=== PATIENT | female | born 1990 | race Caucasian/White ===

== ENCOUNTER 2017-04-15 13:51 | Outpatient (CLI) | payer SELFPAY ==
[2017-04-15 14:37] VITALS: BP 116/67; PULSE 96; RESP 15; TEMP 96.8
[2017-04-15 14:50] LABS: Appearance,Urine Cloudy (Clear); Bacteria,Urine Few /hpf; Bilirubin,Urine Negative (Negative); Blood,Urine Negative (Negative); Color,Urine Yellow; Glucose,Urine (UA) Negative (Negative); Ketones,Urine Negative (Negative); Leukocyte Esterase,Urine Trace (Negative); Mucus,Urine Rare /hpf; Nitrite,Urine Negative (Negative); Protein,Urine Negative (Negative); RBC,Urine 1 /hpf (0-5); Squamous Epithelial Cell,Urine 24 /hpf (0-4); Urobilinogen,Urine <2.0 mg/dL (<2.0); WBC,Urine 3 /hpf (0-5)
[2017-04-15] MEDS ORDERED: IBUPROFEN 400 MG TAB PO STA (15:05)
--- NOTE | 2017-06-21 09:12 | P.MSEPDOC ---
Presenting Problems - Arrival Data Date of Arrival on Unit: 04/15/17 Time of Arrival on Unit: 13:51 Mode of Transport: Ambulatory - Complaint OB-Reason for Admission/Chief Complaint: Headache Medical History - Information : 2 Para: 0 Term: 0 : 0 Abortions: Spontaneous or Elective: 1 Number of Living Children: 0 - Gestational Age Gestational Age by VIVI (wks/days): 25 Weeks and 5 Days Review of Systems - Review of Systems Constitutional: No problems Breast: No problems ENT: No problems Cardiovascular: No problems Respiratory: No problems Gastrointestinal: Diarrhea Genitourinary: No problems Musculoskeletal: No problems Neurological: No problems Skin: No problems Comment: n/v times 1 day Vital Signs - Temperature Temperature: 96.8 F Temperature Source: Temporal Artery Scan - Pulse Brachial Pulse Rate: 96 Pulse Assessment Method: Automatic Cuff - Respirations Respiratory Rate: 15 Oxygen Delivery Method: Room Air O2 Sat by Pulse Oximetry: 99 - Blood Pressure Right Arm Sitting Blood Pressure: 116/67 Blood Pressure Mean: 83 Blood Pressure Source: Automatic Cuff Medical Screen Scoring (Pre) - Uterine Contractions Frequency: N/A Duration: N/A Intensity: N/A - Maternal Vital Signs Maternal Temperature: N/A Maternal Blood Pressure: N/A Signs of Preeclampsia: N/A Maternal Respirations: N/A - Pain Assessment Pain Location and Character: Head Pain Scale Used: Numeric (1 - 10) Pain Intensity: 6 Pain Description: *Acute Pain Frequency: Intermittent Pain Duration Units: Days Pain Behavior: Vocalization Pain Aggravating Factors: Activity Pharmacological Interventions: PRN Medication Non-Pharmacological Interventions: Reduce Environmental Stimuli - Maternal Trauma Maternal Trauma: N/A - Assessment Baseline FHR: 145 Heart Rate - NICHD Category: Category I (Normal) = 0 Position: N/A Station: N/A - Total Score Total Score (Pre): 0 - Level of Risk Level of Risk: Low (0-5) Medical Screen Scoring (Post) - Cervical Exam Dilation: Exam Deferred Effacement: Exam Deferred Membranes: Intact - Uterine Contractions Frequency: N/A Duration: N/A Intensity: N/A - Maternal Vital Signs Maternal Temperature: N/A Maternal Blood Pressure: N/A Signs of Preeclampsia: N/A Maternal Respirations: N/A - Maternal Trauma Maternal Trauma: N/A - Assessment Heart Rate: 135 Heart Rate - NICHD Category: Category II (Indeterminate) = 3 Position: N/A Station: N/A - Total Score Total Score (Post): 3 - Post Treatment Level of Risk Post Treatment Level of Risk: Low (0-5) Physician Notification (Post) - Physician Notified Physician Notified Date: 04/15/17 Physician Notified Time: 15:10 Physician/Practitioner Notified:: Dr Ortiz New Order Received: Yes - Notification Comment Comment: give Motrin 400mg po and dc pt home when she is feeling better Disposition - Disposition OB Disposition: Triage, Discharge to home, Written follow up instructions reviewed Discharge Date: 04/15/17 Discharge Time: 15:52 I agree with the RN Medical Screening Exam: Yes Risk & Benefit of care provided described in d/c instruction: Yes Diagnosis: HEADACHE
== END 2017-04-15 15:53 | disposition home or self-care (01) ==
LOC: FBPOP 13:51
PROVIDERS: ATTEND Obstetrics & Gynecology Obstetrics
DX: O99.89 Other specified diseases and conditions complicating pregnancy, childbirth and the puerperium (principal); R51 Headache; Z3A.25 25 weeks gestation of pregnancy
CPT/HCPCS: 81001

== ENCOUNTER 2017-06-01 21:45 | Outpatient (CLI) | payer OTHER ==
[2017-06-01 22:40] VITALS: BP 110/64; PULSE 85; RESP 16; TEMP 98.5
[2017-06-01 22:40] LABS: Basophils % (A) 0 %; Eosinophils # (A) 0.2 k/uL (0-0.7); Eosinophils % (A) 1 %; HCT 34.8 % (34.0-46.0); HGB 11.6 gm/dL (11.4-16.0); Lymphocytes # (A) 2.1 k/uL (1.0-4.8); Lymphocytes % (A) 19 %; MCH 30.7 pg (25.0-35.0); MCHC 33.4 g/dL (31.0-37.0); MCV 91.9 fL (80.0-100.0); Mean Platelet Volume 7.7; Monocytes # (A) 0.6 k/uL (0-1.0); Monocytes % (A) 6 %; Neutrophils # (A) 7.7 k/uL (1.3-7.7); Neutrophils % (A) 71 %; Platelet Count 188 k/uL (150-450); RBC 3.79 m/uL (3.80-5.40); RDW 12.9 % (11.5-15.5); WBC 10.8 k/uL (3.8-10.6)
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
== END 2017-06-02 01:50 | disposition home or self-care (01) ==
LOC: FBPOP 21:45
PROVIDERS: ATTEND Obstetrics & Gynecology
DX: O9A.213 Injury, poisoning and certain other consequences of external causes complicating pregnancy, third trimester (principal); T14.90XA Injury, unspecified, initial encounter; Z3A.33 33 weeks gestation of pregnancy
CPT/HCPCS: 59025; 86900; 86901; 85025; 86850; 86870; 86880; 76805; G0463; 99215

== ENCOUNTER 2017-06-07 01:52 | Emergency (ER) | payer OTHER ==
[2017-06-07 02:38] VITALS: BP 113/79; PULSE 87; RESP 17; TEMP 97.7
--- NOTE | 2017-06-07 03:09 | ED ---
General Adult HPI - General Chief complaint: Recheck/Abnormal Lab/Rx Stated complaint: fingers turning blue Time Seen by Provider: 06/07/17 02:02 Source: patient Mode of arrival: wheelchair Limitations: no limitations - History of Present Illness Initial comments: 26-year-old female patient presents to the emergency department this evening for evaluation of bluish discoloration to her bilateral hands. Patient states that for the last 4 days she has noticed her hands turning blue intermittently. Patient states that it does not matter what her temperature or activity. She denies any numbness or tingling to the hands. Denies any injuries. Patient is 33 weeks and is also complaining of some intermittent mild abdominal cramping. She is A1. She denies any vaginal bleeding or discharge. She denies any low back pain. Patient denies any nausea, vomiting, headaches, dizziness, weakness, chest pain, shortness of breath, palpitations, urinary frequency, urinary urgency, dysuria, or hematuria. She denies any difficulty with bowel movements. Patient follows with Dr. Burrows her [facility]. - Related Data Home Medications Medication Instructions Recorded Confirmed Ferrous Sulfate [Iron] 325 mg PO BID 04/15/17 06/01/17 Pnv,Calcium 72/Iron/Folic Acid 1 tab PO DAILY 04/15/17 06/01/17 [ Plus Tablet] Sennosides [Senokot] 2 tab PO DAILY 04/15/17 06/01/17 Allergies Allergy/AdvReac Type Severity Reaction Status Date / Time No Known Allergies Allergy Verified 06/07/17 01:58 Review of Systems ROS Statement: Those systems with pertinent positive or pertinent negative responses have been documented in the HPI. ROS Other: All systems not noted in ROS Statement are negative. Past Medical History Past Medical History: No Reported History History of Any Multi-Drug Resistant Organisms: None Reported Past Surgical History: No Surgical Hx Reported Past Psychological History: No Psychological Hx Reported Smoking Status: Never smoker Past Alcohol Use History: None Reported Past Drug Use History: None Reported General Exam Limitations: no limitations General appearance: alert, in no apparent distress, other (This is a well- developed, well-nourished adult female patient in no acute distress. Vital signs upon presentation are temperature 97.7F, pulse 87, respirations 17, blood pressure 113/79, pulse ox 100% on room air.) Eye exam: Present: normal appearance, PERRL, EOMI. Absent: scleral icterus, conjunctival injection, periorbital swelling ENT exam: Present: normal exam, normal oropharynx, mucous membranes moist Respiratory exam: Present: normal lung sounds bilaterally. Absent: respiratory distress, wheezes, rales, rhonchi, stridor Cardiovascular Exam: Present: regular rate, normal rhythm, normal heart sounds. Absent: systolic murmur, diastolic murmur, rubs, gallop, clicks GI/Abdominal exam: Present: soft, normal bowel sounds, other (Gravid abdomen). Absent: distended, tenderness, guarding, rebound, rigid Extremities exam: Present: full ROM, normal capillary refill, other (Patient exhibited a bluish discoloration to her bilateral hands, hands are warm, cap refill is less than 3 seconds. ). Absent: normal inspection, tenderness, pedal edema, joint swelling, calf tenderness Neurological exam: Present: alert, oriented X3, CN II-XII intact Psychiatric exam: Present: normal affect, normal mood Skin exam: Present: warm, dry, intact, normal color. Absent: rash Course Vital Signs 06/07/17 01:55 Temperature 97.7 F Pulse Rate 87 Respiratory 17 Rate Blood Pressure 113/79 O2 Sat by Pulse 100 Oximetry Medical Decision Making - Medical Decision Making 26-year-old female patient presented to the emergency department today for evaluation of abdominal cramping and loose discoloration to her hands. Physical examination did reveal bluish discoloration to her bilateral hands, however hands were warm, dry, cap refills less than 3 seconds. I did take an alcohol swab and rapid over her hands and it did reveal a blue dye. I did have patient wash her hands with soap and water, afterwards skin was pink again with warm temperature and Refills less than 3 seconds. We did have labor and delivery come down and perform a nonstress test which was normal after a 20 minute reading. I did discuss findings with patient. She is instructed to follow-up with her primary care physician for recheck in 1-2 days per juices instructed to return here immediately for any new, worsening, or concerning symptoms. She verbalizes understanding and agrees with this plan. Disposition Clinical Impression: Abdominal cramping affecting Disposition: HOME SELF-CARE Condition: Good Instructions: Abdominal Pain in (ED) Additional Instructions: Follow-up with your [facility] for recheck in 1-2 days. Return here immediately for any new, worsening, or concerning symptoms. Referrals: Derik Burrows DO [Primary Care Provider] - 1-2 days Time of Disposition: 03:08
== END 2017-06-07 03:38 | disposition home or self-care (01) ==
LOC: EC 01:52
DX: O26.893 Other specified pregnancy related conditions, third trimester (principal); R10.9 Unspecified abdominal pain; O99.89 Other specified diseases and conditions complicating pregnancy, childbirth and the puerperium; R23.0 Cyanosis; Z79.899 Other long term (current) drug therapy; Z3A.33 33 weeks gestation of pregnancy
CPT/HCPCS: 99283

== ENCOUNTER 2017-06-23 23:21 | Outpatient (CLI) | payer OTHER ==
[2017-06-23 23:49] VITALS: BP 129/73; PULSE 118; RESP 16; TEMP 97.4
--- NOTE | 2017-06-25 08:41 | P.MSEPDOC ---
Presenting Problems - Arrival Data Date of Arrival on Unit: 06/23/17 Time of Arrival on Unit: 23:21 Mode of Transport: Wheelchair - Complaint OB-Reason for Admission/Chief Complaint: Observation/Evaluation Comment: contractions all day, every 3-4 minutes Medical History - Information : 2 Para: 0 Term: 0 : 0 Abortions: Spontaneous or Elective: 1 Number of Living Children: 0 - Gestational Age Gestational Age by VIVI (wks/days): 35 Weeks and 5 Days Review of Systems - Review of Systems Constitutional: No problems Breast: No problems ENT: No problems Cardiovascular: No problems Respiratory: No problems Gastrointestinal: No problems Genitourinary: No problems Musculoskeletal: No problems Neurological: No problems Skin: No problems Vital Signs - Temperature Temperature: 97.4 F Temperature Source: Temporal Artery Scan - Pulse Right Pulse Rate: 118 Pulse Assessment Method: Automatic Cuff - Respirations Respiratory Rate: 16 Oxygen Delivery Method: Room Air O2 Sat by Pulse Oximetry: 97 - Blood Pressure Right Arm Blood Pressure: 129/73 Blood Pressure Mean: 91 Blood Pressure Source: Automatic Cuff Medical Screen Scoring (Pre) - Cervical Exam Dilation: 0 cm = 0 Membranes: Intact - Maternal Vital Signs Maternal Temperature: N/A Maternal Blood Pressure: N/A Signs of Preeclampsia: N/A - Pain Assessment Pain Location and Character: Abdomen Pain Scale Used: Numeric (1 - 10) Pain Intensity: 4 Pain Management Goal: 2 Pain Description: *Acute, Cramping Pain Frequency: Intermittent Pain Behavior: None Exhibited Pain Aggravating Factors: Contractions - Total Score Total Score (Pre): 0 - Level of Risk Level of Risk: Low (0-5) Physician Notification (Pre) - Physician Notified Physician Notified Date: 06/24/17 Physician Notified Time: 00:43 Physician/Practitioner Notifed:: Dr. burrows Spoke With: Dr. Burrows New Order Received: Yes - Notification Comment Comment: discharge home Disposition - Disposition OB Disposition: LDRP Suite, Written follow up instructions reviewed Discharge Date: 06/24/17 Discharge Time: 00:59 I agree with the RN Medical Screening Exam: Yes Risk & Benefit of care provided described in d/c instruction: Yes Diagnosis: FALSE LABOR BEFORE 37 COMPLETED WEEKS OF GEST, THIRD TRI
== END 2017-06-24 01:00 | disposition home or self-care (01) ==
LOC: FBPOP 23:21
PROVIDERS: ATTEND Obstetrics & Gynecology
DX: O47.03 False labor before 37 completed weeks of gestation, third trimester (principal); Z3A.35 35 weeks gestation of pregnancy
CPT/HCPCS: 84112; G0463; 99213

== ENCOUNTER 2017-06-29 09:32 | Outpatient (CLI) | payer OTHER ==
[2017-06-29 10:56] VITALS: BP 115/61; PULSE 98; RESP 16; TEMP 97.7
--- NOTE | 2017-06-30 07:40 | P.MSEPDOC ---
Presenting Problems - Arrival Data Date of Arrival on Unit: 06/29/17 Time of Arrival on Unit: 09:35 Mode of Transport: Ambulatory - Complaint OB-Reason for Admission/Chief Complaint: Decreased Movement Medical History - Information : 2 Para: 0 Term: 0 : 0 Abortions: Spontaneous or Elective: 1 Number of Living Children: 0 - Gestational Age Gestational Age by VIVI (wks/days): 36 Weeks and 3 Days - History Comment: not feeling baby move last 8-10 hours Review of Systems - Review of Systems Constitutional: No problems Breast: No problems ENT: No problems Cardiovascular: No problems Respiratory: No problems Gastrointestinal: No problems Genitourinary: No problems Musculoskeletal: No problems Neurological: No problems Skin: No problems Vital Signs - Temperature Temperature: 97.7 F Temperature Source: Tympanic - Pulse Right Apical Pulse Rate: 98 Pulse Assessment Method: Automatic Cuff - Respirations Respiratory Rate: 16 Oxygen Delivery Method: Room Air - Blood Pressure Right Arm Blood Pressure: 115/61 Blood Pressure Mean: 79 Blood Pressure Source: Automatic Cuff Medical Screen Scoring (Pre) - Cervical Exam Dilation: Exam Deferred - Uterine Contractions Frequency: N/A Duration: N/A Intensity: N/A - Maternal Vital Signs Maternal Temperature: N/A Maternal Blood Pressure: N/A Signs of Preeclampsia: N/A Maternal Respirations: N/A - Pain Assessment Pain Scale Used: Numeric (1 - 10) Pain Intensity: 0 - Maternal Trauma Maternal Trauma: N/A - Assessment Baseline FHR: 130 Heart Rate - NICHD Category: Category I (Normal) = 0 NST: Reactive Position: N/A Station: N/A - Total Score Total Score (Pre): 0 - Level of Risk Level of Risk: Low (0-5) Physician Notification (Pre) - Physician Notified Physician Notified Date: 06/29/17 Physician Notified Time: 10:00 Physician/Practitioner Notifed:: beltran Spoke With: beltran [place] Order Received: Yes (discharge home) - Notification Comment Comment: reactive nst. pt now feeling baby move. to follow up with dr bender on july 03[next scheduled appt] Disposition - Disposition OB Disposition: Discharge to home Discharge Date: 06/29/17 Discharge Time: 10:20 I agree with the RN Medical Screening Exam: Yes Risk & Benefit of care provided described in d/c instruction: Yes Diagnosis: DECREASED MOVEMENTS, THIRD TRIMESTER, FETUS 1
== END 2017-06-29 10:20 | disposition home or self-care (01) ==
LOC: FBPOP 09:32
PROVIDERS: ATTEND Obstetrics & Gynecology
DX: O36.8131 Decreased fetal movements, third trimester, fetus 1 (principal); Z3A.36 36 weeks gestation of pregnancy
CPT/HCPCS: 59025; G0463; 99213

== ENCOUNTER 2017-07-15 11:00 | Outpatient (CLI) | payer OTHER ==
[2017-07-15 11:50] VITALS: BP 122/67; PULSE 113; RESP 16; TEMP 97.6
--- NOTE | 2017-07-16 08:01 | P.MSEPDOC ---
Presenting Problems - Arrival Data Date of Arrival on Unit: 07/15/17 Time of Arrival on Unit: 11:00 Mode of Transport: Ambulatory - Complaint OB-Reason for Admission/Chief Complaint: Possible Onset of Labor Comment: Cramping since 1000 Medical History - Information : 2 Para: 0 Term: 0 : 0 Abortions: Spontaneous or Elective: 1 Number of Living Children: 0 - Gestational Age Gestational Age by VIVI (wks/days): 38 Weeks and 5 Days Review of Systems - Review of Systems Constitutional: No problems Breast: No problems ENT: No problems Cardiovascular: No problems Respiratory: No problems Gastrointestinal: No problems Genitourinary: No problems Musculoskeletal: No problems Neurological: No problems Skin: No problems Vital Signs - Temperature Temperature: 97.6 F Temperature Source: Temporal Artery Scan - Pulse Right Sitting Brachial Pulse Rate: 113 - Respirations Respiratory Rate: 16 Oxygen Delivery Method: Room Air O2 Sat by Pulse Oximetry: 96 - Blood Pressure Right Arm Sitting Blood Pressure: 122/67 Blood Pressure Mean: 85 Blood Pressure Source: Automatic Cuff Medical Screen Scoring (Pre) - Cervical Exam Dilation: 0 cm = 0 Effacement: Exam Deferred Membranes: Intact - Uterine Contractions Frequency: N/A Duration: N/A Intensity: N/A - Maternal Vital Signs Maternal Temperature: N/A Maternal Blood Pressure: N/A Signs of Preeclampsia: N/A Maternal Respirations: N/A - Pain Assessment Pain Location and Character: Abdomen Pain Scale Used: Numeric (1 - 10) Pain Intensity: 6 Pain Management Goal: 2 Pain Description: *Acute, Cramping Pain Radiation Location: none Pain Frequency: Constant Pain Duration: 2 Pain Duration Units: Hours Pain Behavior: Vocalization - Maternal Trauma Maternal Trauma: N/A - Assessment Baseline FHR: 130 Heart Rate - NICHD Category: Category I (Normal) = 0 NST: Reactive Position: N/A Station: N/A - Total Score Total Score (Pre): 0 - Level of Risk Level of Risk: Low (0-5) Physician Notification (Pre) - Physician Notified Physician Notified Date: 07/15/17 Physician Notified Time: 11:40 Physician/Practitioner Notifed:: Stormy Spoke With: Stormy New Order Received: Yes - Notification Comment Comment: Spk c\Dr. Burrows, advsd , 38 /, c/o constant cramping since 1000 , leaking & decreased movement x 1 wk, amnisure negative, discharge appears to be yeast infection. SVE fingertip/thick/-3, posterior, no contractions, reactive NST. Has appt Wed 07/17. States to d/c home, will see at appt. Disposition - Disposition OB Disposition: Discharge to home, Written follow up instructions reviewed Discharge Date: 07/15/17 Discharge Time: 11:45 I agree with the RN Medical Screening Exam: Yes Risk & Benefit of care provided described in d/c instruction: Yes Diagnosis: FALSE LABOR AT OR AFTER 37 COMPLETED WEEKS OF GESTATION
== END 2017-07-15 11:45 | disposition home or self-care (01) ==
LOC: FBPOP 11:00
PROVIDERS: ATTEND Obstetrics & Gynecology
DX: O47.1 False labor at or after 37 completed weeks of gestation (principal); Z3A.38 38 weeks gestation of pregnancy
CPT/HCPCS: 59025; 84112; G0463; 99213

== ENCOUNTER 2017-07-17 06:30 | Inpatient (IN) | payer OTHER ==
[2017-07-17] MEDS ORDERED: CARBOPROST TROMETHAMINE 250 MCG/ML 1 ML AMP IM PRN (07:23)
[2017-07-17] MEDS ORDERED: TERBUTALINE 1 MG/ML VIAL SQ PRN (07:23)
[2017-07-17] MEDS ORDERED: METHYLERGONOVINE 0.2 MG/ML 1 ML AMP IM PRN (07:23)
[2017-07-17] MEDS ORDERED: OXYTOCIN 10 UNIT/ML 1 ML VIAL IM PRN (07:23)
[2017-07-17] MEDS ORDERED: LIDOCAINE 1% (PF) 10 MG/ML (30 ML SDV) SQ PRN (07:23)
[2017-07-17] MEDS ORDERED: OXYTOCIN 20 UNITS/1000 ML NS 1,000 ML IV SCH (07:30)
[2017-07-17 07:33] VITALS: BMI 34.4
[2017-07-17 07:33] LABS: Basophils % (A) 0 %; Eosinophils # (A) 0.1 k/uL (0-0.7); Eosinophils % (A) 1 %; HCT 35.5 % (34.0-46.0); HGB 12.3 gm/dL (11.4-16.0); Lymphocytes # (A) 2.4 k/uL (1.0-4.8); Lymphocytes % (A) 23 %; MCH 31.1 pg (25.0-35.0); MCHC 34.7 g/dL (31.0-37.0); MCV 89.6 fL (80.0-100.0); Mean Platelet Volume 9.1; Monocytes # (A) 0.8 k/uL (0-1.0); Monocytes % (A) 7 %; Neutrophils % (A) 67 %; Platelet Count 176 k/uL (150-450); RBC 3.96 m/uL (3.80-5.40); RDW 13.8 % (11.5-15.5); WBC 10.5 k/uL (3.8-10.6)
[2017-07-17] MEDS: LACTATED RINGERS 1,000 ML IV SCH ×2 (07:58→13:41)
[2017-07-17] MEDS ORDERED: BUPIVACAINE (PF) 0.25% 30 ML VIAL ONE (13:25)
[2017-07-17] MEDS ORDERED: fentaNYL (PF) 50 MCG/ML 5 ML AMP ONE (13:25)
[2017-07-17] MEDS ORDERED: SODIUM CHLORIDE 0.9% 100 ML BAG ONE (13:25)
[2017-07-17] MEDS ORDERED: BUPIVACAINE (PF) 0.25% 25 ML, fentaNYL (PF) 200 MCG in SODIUM CHLORIDE 0.9% 71 ML EPIDURAL ONE (14:01)
[2017-07-17] MEDS ORDERED: SIMETHICONE 80 MG CHEWABLE PO PRN (17:27)
[2017-07-17] MEDS ORDERED: WITCH HAZEL 1 EACH MED..PAD TOPICAL PRN (17:27)
[2017-07-17] MEDS ORDERED: ACETAMINOPHEN TAB 325 MG TAB PO PRN (17:27)
[2017-07-17] MEDS ORDERED: LANOLIN CREAM 5 GM TUBE TOPICAL PRN (17:27)
[2017-07-17] MEDS ORDERED: IBUPROFEN 600 MG TAB PO PRN (17:27)
[2017-07-17] MEDS ORDERED: ZOLPIDEM 5 MG TAB PO PRN (17:27)
[2017-07-17] MEDS ORDERED: diphenhydrAMINE 50 MG/ML 1 ML VIAL IVP PRN ×2 (17:27)
[2017-07-17] MEDS ORDERED: diphenhydrAMINE 50 MG CAP PO PRN (17:27)
[2017-07-17] MEDS ORDERED: HYDROCORTISONE 2.5% RECTAL CREAM 30 GM TUBE RECTAL PRN (17:27)
[2017-07-17] MEDS ORDERED: diphenhydrAMINE 25 MG CAP PO PRN (17:27)
[2017-07-17] MEDS ORDERED: BENZOCAINE/MENTHOL SPRAY 1 GM/SPRAY AEROSOL TOPICAL PRN (17:27)
--- NOTE | 2017-07-17 17:32 | P.HPOB ---
History of Present Illness H&P Date: 07/17/17 Chief Complaint: Intrauterine at term: Induction of labor Lisandra is a 26-year-old G 2 P0 at 39 weeks gestation arise for induction of labor. Her course was generally unremarkable. She was a transfer of care at 32 weeks gestation as she just moved to the [facility]. She did receive Rho aida at 28 weeks prior to her transfer of care. Over the last couple of weeks she is had significant cramping and discomfort and due to her discomfort and induction has been scheduled. She is aware of increased risk for need for section with any induction of labor and all questions were answered for both she and her significant other prior to induction. On physical exam vital signs are stable and afebrile. Heart regular, lungs clear, extremities are without pain. Osteopathic exams unremarkable. She was dilated to 1-1/2 cm 80% effaced -2 station. Artificial rupture membranes was performed and clear fluid is noted. Abdomen is otherwise gravid. heart tones in the 130s to 140s and reactive. Pertinent labs did include A- blood type Rh antibody was negative, rubella immune, hepatitis B surface antigen and RPR as well as GBS were negative. Assessment intrauterine at 39 weeks. Plan expect spontaneous vaginal delivery. We will also plan Pitocin augmentation of labor and an epidural for analgesia. Past Medical History Past Medical History: No Reported History History of Any Multi-Drug Resistant Organisms: None Reported Past Surgical History: No Surgical Hx Reported Past Anesthesia/Blood Transfusion Reactions: No Reported Reaction Past Psychological History: No Psychological Hx Reported Smoking Status: Never smoker Past Alcohol Use History: None Reported Past Drug Use History: None Reported - Past Family History Mother Family Medical History: No Reported History Medications and Allergies Home Medications Medication Instructions Recorded Confirmed Type Ferrous Sulfate [Iron] 325 mg PO BID 04/15/17 07/17/17 History Pnv,Calcium 72/Iron/Folic Acid 1 tab PO DAILY 04/15/17 07/17/17 History [ Plus Tablet] Sennosides [Senokot] 2 tab PO DAILY 04/15/17 07/17/17 History Allergies Allergy/AdvReac Type Severity Reaction Status Date / Time No Known Allergies Allergy Verified 07/17/17 07:21 Exam Osteopathic Statement: *. No significant issues noted on an osteopathic structural exam other than those noted in the History and Physical/Consult. - Vital Signs Vital signs: Vital Signs Temp Pulse Resp BP Pulse Ox 07/17/17 07:20 96.7 F L 113 H 18 119/70 95 Intake and Output 07/17/17 07/17/17 07/17/17 06:59 14:59 22:59 Other: Weight 105.687 kg Results Result Diagrams: 07/17/17 07:05
--- NOTE | 2017-07-17 17:33 | P.PROBDLV ---
Vaginal Delivery Note - . Vaginal Delivery Note: Patient progressed to complete and pushing with spontaneous vaginal delivery of a viable female over an intact perineum. Falling deliver the head from straight OA position anterior and posterior shoulders were delivered with gentle downward upper traction followed by the remainder the baby. Mouth and nares were then bulb suctioned and baby was placed on mother's abdomen where the umbilical cord was allowed to pulsate for 30 seconds prior to clamping and cutting. Once this was accomplished nursery personnel was present to assume care. Placenta was then delivered intact and Pitocin was added to the IV. A approximate 4 cm left labial laceration was noted and repaired in running fashion with 3-0 Vicryl following 1% Xylocaine for analgesia. scores were 9 and 9 at one and 5 minutes respectively and the weight was 8 lbs. 2 oz. Both mother and baby are stable following delivery.
[2017-07-17] MEDS: SENNOSIDES-DOCUSATE SODIUM 1 EACH TAB PO SCH (21:09)
[2017-07-18] MEDS: LACTATED RINGERS 1,000 ML IV SCH (00:18)
[2017-07-18] MEDS ORDERED: Rhogam IMMUNE GLOBULIN 1,500 UNIT/1 ML IM ONE (00:45)
[2017-07-18] MEDS: SENNOSIDES-DOCUSATE SODIUM 1 EACH TAB PO SCH (10:12)
--- NOTE | 2017-07-18 10:19 | P.DS ---
Providers Date of admission: 07/17/17 06:59 Expected date of discharge: 07/18/17 Attending physician: Derik Burrows Primary care physician: Stated None Hospital Course: Lisandra is doing very well post day 1. She is ambulating, voiding, and she is tolerating her diet. She voices no complaints. Vital signs are stable and afebrile. Heart regular, lungs clear, extremities without pain. Abdomen soft bowel sounds are noted and uterus is firm below the umbilicus. Lochia is also reported to be light. Assessment day 1. Plan discharged home follow up me in 6 weeks. Discharge instructions were thoroughly reviewed and prescription for Motrin has been provided. She will follow me in 6 weeks. Patient Condition at Discharge: Good Plan - Discharge Summary New Discharge Prescriptions: New Ibuprofen [Motrin] 600 mg PO Q6HR PRN #30 tab PRN Reason: Pain No Action Sennosides [Senokot] 2 tab PO DAILY Pnv,Calcium 72/Iron/Folic Acid [ Plus Tablet] 1 tab PO DAILY Ferrous Sulfate [Iron] 325 mg PO BID Discharge Medication List Ferrous Sulfate [Iron] 325 mg PO BID 04/15/17 [History] Pnv,Calcium 72/Iron/Folic Acid [ Plus Tablet] 1 tab PO DAILY 04/15/17 [ History] Sennosides [Senokot] 2 tab PO DAILY 04/15/17 [History] Ibuprofen [Motrin] 600 mg PO Q6HR PRN #30 tab 07/18/17 [Rx] Follow up Appointment(s)/Referral(s): Derik Burrows DO [Doctor of Osteopathic Medicine] - 6 Weeks Activity/Diet/Wound Care/Special Instructions: No heavy lifting, limit stairs and driving, and pelvic rest. If any high temperatures, heavy bleeding, or severe pain call my office Discharge Disposition: HOME SELF-CARE
[2017-07-18 10:25] VITALS: PULSE 80; RESP 18
[2017-07-18 16:33] VITALS: BP 123/80; TEMP 98.2
== END 2017-07-18 19:24 | disposition home or self-care (01) | DRG 775 ==
LOC: 4FBP 06:59
PROVIDERS: ADMIT Obstetrics & Gynecology; ATTEND Obstetrics & Gynecology
PROC: 3E0R3NZ Introduction of Analgesics, Hypnotics, Sedatives into Spinal Canal, Percutaneous Approach (ICD-10-PCS; principal; 2017-07-17)
PROC: 10907ZC Drainage of Amniotic Fluid, Therapeutic from Products of Conception, Via Natural or Artificial Opening (ICD-10-PCS; principal; 2017-07-17)
PROC: 00HU33Z Insertion of Infusion Device into Spinal Canal, Percutaneous Approach (ICD-10-PCS; principal; 2017-07-17)
PROC: 10E0XZZ Delivery of Products of Conception, External Approach (ICD-10-PCS; principal; 2017-07-17)
PROC: 0HQ9XZZ Repair Perineum Skin, External Approach (ICD-10-PCS; principal; 2017-07-17)
PROC: 3E033VJ Introduction of Other Hormone into Peripheral Vein, Percutaneous Approach (ICD-10-PCS; principal; 2017-07-17)
DX: O70.0 First degree perineal laceration during delivery (principal); Z37.0 Single live birth; Z3A.39 39 weeks gestation of pregnancy
CPT/HCPCS: 85025; 85461; 88307

== ENCOUNTER 2018-03-02 15:20 | Emergency (ER) | payer OTHER ==
[2018-03-02 15:24] VITALS: BP 114/79; PULSE 97; RESP 18; TEMP 98.3
--- NOTE | 2018-03-02 15:58 | XR ---
EXAMINATION TYPE: XR hand complete LT DATE OF EXAM: 03/02/2018 CLINICAL HISTORY: Left hand pain in the index finger after injury TECHNIQUE: Frontal, lateral and oblique images of the left hand are obtained. COMPARISON: None. FINDINGS: There is no acute fracture/dislocation evident in the left hand. The joint spaces in the l eft hand appear within normal limits. The overlying soft tissue appears unremarkable. IMPRESSION: There is no acute fracture or dislocation in the left hand.
--- NOTE | 2018-03-02 16:04 | ED ---
Upper Extremity HPI - General Chief Complaint: Extremity Injury, Upper Stated Complaint: finger injury Time Seen by Provider: 03/02/18 15:28 Source: patient Mode of arrival: ambulatory Limitations: no limitations - History of Present Illness Initial Comments: 27 yo female with no PMH presenting today for cc of left index injury x 1 day. Pt states that last night around 10:00PM she slammed her left index finger into the car door. She states she immediately pain, and some swelling. She states she can move it but only slightly due to the pain. Pt denies hand pain or injury to any other extremity. Pt denies numbness, tingling or loss of sensation. Remainder of ROS (-), patient denies any recent fever, chills, shortness of breath, chest pain, back pain, abdominal pain, nausea or vomiting, numbness or tingling, dysuria or hematuria, constipation or diarrhea, headaches or visual changes, or any other complaints. Upon arrival pt is well appearing VS within acceptable limits. - Related Data Home Medications Medication Instructions Recorded Confirmed Ferrous Sulfate [Iron] 325 mg PO BID 04/15/17 07/17/17 Pnv,Calcium 72/Iron/Folic Acid 1 tab PO DAILY 04/15/17 07/17/17 [ Plus Tablet] Sennosides [Senokot] 2 tab PO DAILY 04/15/17 07/17/17 Previous Rx's Medication Instructions Recorded Ibuprofen [Motrin] 600 mg PO Q6HR PRN #30 tab 07/18/17 Allergies Allergy/AdvReac Type Severity Reaction Status Date / Time No Known Allergies Allergy Verified 03/02/18 15:24 Review of Systems ROS Statement: Those systems with pertinent positive or pertinent negative responses have been documented in the HPI. ROS Other: All systems not noted in ROS Statement are negative. Constitutional: Denies: fever, chills, night sweats ENT: Denies: ear pain, throat pain Respiratory: Denies: cough, dyspnea Cardiovascular: Denies: chest pain, palpitations Endocrine: Denies: fatigue Gastrointestinal: Denies: abdominal pain, nausea, vomiting Genitourinary: Denies: urgency, dysuria Musculoskeletal: Reports: joint swelling (PIP and DIP of the left index finger) , arthralgia. Denies: back pain Neurological: Denies: headache, weakness, numbness, paresthesias, confusion, abnormal gait Past Medical History Past Medical History: No Reported History History of Any Multi-Drug Resistant Organisms: None Reported Past Surgical History: No Surgical Hx Reported Past Anesthesia/Blood Transfusion Reactions: No Reported Reaction Past Psychological History: Depression Smoking Status: Current every day smoker Past Alcohol Use History: None Reported Past Drug Use History: None Reported - Past Family History Mother Family Medical History: No Reported History General Exam - General Exam Comments Initial Comments: General: The patient is awake and alert, in no distress, and does not appear acutely ill. Eye: Pupils are equal, round and reactive to light, extra-ocular movements are intact. No nystagmus. There is normal conjunctiva bilaterally. No signs of icterus. Cardiovascular: There is a regular rate and rhythm. No murmur, rub or gallop is appreciated. Respiratory: Lungs are clear to auscultation, respirations are non-labored, breath sounds are equal. No wheezes, stridor, rales, or rhonchi. Musculoskeletal: Very superficial abrasion of the left index finger, no laceration. Soft tissue swelling and mild ecchymosis noted. No pallor. Tissue compressible. No gross deformity, finger is not stuck in flexion. Pt refuses to fully range at the DIP and PIP joints of the left index finger, full ROM at the MCP joint, tenderness with all ROM. Sensation intact. Radial pulses equal bilaterally 2+. Capillary refilll of left index finger <2 seconds. Neurological: A&O x 3. CN II-XII intact, There are no obvious motor or sensory deficits. Coordination appears grossly intact. Speech is normal. Skin: Skin is warm and dry and no rashes or lesions are noted. Psychiatric: Cooperative, appropriate mood & affect, normal judgment. Limitations: no limitations Course Vital Signs 03/02/18 15:22 Temperature 98.3 F Pulse Rate 97 Respiratory 18 Rate Blood Pressure 114/79 O2 Sat by Pulse 96 Oximetry Medical Decision Making - Medical Decision Making 27yo female with cc of slammed left index finger in door. XR (-). Pt tetanus UTD. Pt placed in splint with full extension, due to pt refusing to fully range at the PIP and DIP joints, she was able to slightly flex and extend. No fixed flexed position noted. At this time I am concerned for possible tendon injury and expressed this to the patient. I recommended close orthopedic f/u for further evaluation. Pt agreed with plan. IN addition pt was given RICE instruction as well as instruction to use over the counter Tylenol and motrin for pain. Case discussed in detail with Dr. Oviedo who agreed with impression and plan. Pt discharged in stable condition. Pt was agreeable with discharge and plan. Denied questions at this time. Return parameters discussed at length with patient, who verbalized understanding. Disposition Clinical Impression: Injury of left index finger Disposition: HOME SELF-CARE Condition: Good Instructions: Finger Sprain (ED) Additional Instructions: Please use over the counter pain medication as discussed. Please follow-up with orthopedic surgery in the next 1-2 days. Please return to emergency room if the symptoms increase or worsen or for any other concerns. Is patient prescribed a controlled substance at d/c from ED?: No Referrals: None,Stated [Primary Care Provider] - 1-2 days Jose Feldman MD [STAFF PHYSICIAN] - 1-2 days Time of Disposition: 16:04
== END 2018-03-02 16:20 | disposition home or self-care (01) ==
LOC: EC 15:20
DX: S60.022A Contusion of left index finger without damage to nail, initial encounter (principal); F17.200 Nicotine dependence, unspecified, uncomplicated; Z79.899 Other long term (current) drug therapy; W23.0XXA Caught, crushed, jammed, or pinched between moving objects, initial encounter
CPT/HCPCS: 99283

== ENCOUNTER 2018-06-07 18:51 | Emergency (ER) | payer OTHER ==
--- NOTE | 2018-06-07 19:21 | ED ---
Female Urogenital HPI - General Chief complaint: Urogenital Stated complaint: lower abdominal pain Time Seen by Provider: 06/07/18 19:14 Source: patient, RN notes reviewed, old records reviewed Mode of arrival: ambulatory Limitations: no limitations - History of Present Illness Initial comments: Patient is a 27-year-old female who presents return today with lower abdominal pain and concerns for vaginal discharge. She denies any concern for STD. Patient states that she's been having symptoms for 3 days. Patient states that she's had no fevers chills nausea vomiting changes in stools. She denies dysuria. Patient reports that her last menstrual period was partially one month ago. - Related Data Home Medications Medication Instructions Recorded Confirmed Ferrous Sulfate [Iron] 325 mg PO BID 04/15/17 07/17/17 Pnv,Calcium 72/Iron/Folic Acid 1 tab PO DAILY 04/15/17 07/17/17 [ Plus Tablet] Sennosides [Senokot] 2 tab PO DAILY 04/15/17 07/17/17 Previous Rx's Medication Instructions Recorded Ibuprofen [Motrin] 600 mg PO Q6HR PRN #30 tab 07/18/17 Allergies Allergy/AdvReac Type Severity Reaction Status Date / Time No Known Allergies Allergy Verified 06/07/18 19:07 Review of Systems ROS Statement: Those systems with pertinent positive or pertinent negative responses have been documented in the HPI. ROS Other: All systems not noted in ROS Statement are negative. Past Medical History Past Medical History: No Reported History History of Any Multi-Drug Resistant Organisms: None Reported Past Surgical History: No Surgical Hx Reported Past Anesthesia/Blood Transfusion Reactions: No Reported Reaction Past Psychological History: No Psychological Hx Reported, Depression Smoking Status: Current every day smoker Past Alcohol Use History: None Reported Past Drug Use History: None Reported - Past Family History Mother Family Medical History: No Reported History General Exam - General Exam Comments Initial Comments: 27-year-old female. Alert and oriented 3. No significant distress. General: Well appearing, well nourished, in no distress. Oriented x 3, normal mood and affect . Ambulating without difficulty. Skin: Good turgor, no rash, unusual bruising or prominent lesions Hair: Normal texture and distribution. HEENT: Head: Normocephalic, atraumatic, no visible or palpable masses, depressions, or scaring. Pharynx: Mucosa non-inflamed, no tonsillar hypertrophy or exudate Neck: Supple, without lesions, bruits, or adenopathy, thyroid non-enlarged and non-tender Heart: No cardiomegaly or thrills; regular rate and rhythm, no murmur or gallop Lungs: Clear to auscultation and percussion Abdomen: Bowel sounds normal, no tenderness, organomegaly, masses, or hernia Extremities: No amputations or deformities, cyanosis, edema or varicosities, peripheral pulses intact Musculoskeletal: Normal gait and station. No misalignment, asymmetry, crepitation, defects, tenderness, masses, effusions, decreased range of motion, instability, atrophy or abnormal strength or tone in the head, neck, spine, ribs , pelvis or extremities. Neurologic: CN 2-12 normal. Sensation to pain, touch, and proprioception normal. DTRs normal in upper and lower extremities. No pathologic reflexes. Psychiatric: Oriented X3, intact recent and remote memory, judgment and insight , normal mood and affect. Pelvic: Vagina and external exam are normal. Cervix is friable. Frothy yellow discharge noted. Patient has cervical motion tenderness. Limitations: no limitations General appearance: alert, in no apparent distress Course Vital Signs 06/07/18 19:07 Temperature 98.7 F Pulse Rate 83 Respiratory 18 Rate Blood Pressure 113/67 O2 Sat by Pulse 100 Oximetry Medical Decision Making - Medical Decision Making Patient is 27-year-old female presents emergency department today with complaints for bilateral pelvic pain as well as vaginal discharge. Patient is concerned for possible . Urine hCG is negative. Urinalysis is positive for hematuria-bacteria. Patient has no back pain not concerned for kidney stones. Pelvic exam did show friable cervix with frothy yellow discharge. Patient is positive for Trichomonas. We'll treat for chlamydia and gonorrhea IM Rocephin and azithromycin and PO Falgyl. Discussed treating sexual partners. Discussed obtaining from intercourse for the next 2 weeks until asymptomatic. Patient agrees to treatment plan will comply. Return parameters were discussed. - Lab Data Lab Results 06/07/18 06/07/18 06/07/18 Range/Units 19:00 19:00 19:32 Urine Color Yellow Urine Appearance Cloudy H (Clear) Urine pH 6.5 (5.0-8.0) Ur Specific [place] 1.023 (1.001-1.035) Urine Protein Trace H (Negative) Urine Glucose (UA) Negative (Negative) Urine Ketones Negative (Negative) Urine Blood Small H (Negative) Urine Nitrite Negative (Negative) Urine Bilirubin Negative (Negative) Urine Urobilinogen <2.0 (<2.0) mg/dL Ur Leukocyte Esterase Large H (Negative) Urine RBC 17 H (0-5) /hpf Ur Squamous Epith Cells 11 H (0-4) /hpf Urine Bacteria Rare H (None) /hpf Urine Mucus Many H (None) /hpf Urine HCG, Qual Not Detected (Not Detectd) Trichomonas Ag (Rapid) Positive H (Negative) Disposition Clinical Impression: Trichomonas vaginitis Disposition: HOME SELF-CARE Condition: Good Instructions (If sedation given, give patient instructions): Trichomoniasis (ED ), Cervicitis (ED) Additional Instructions: Patient arrives to follow-up with primary care physician and [facility]. Abstain from intercourse for the next 2 weeks. Is patient prescribed a controlled substance at d/c from ED?: No Referrals: None,Stated [Primary Care Provider] - 1-2 days Eve Orantes MD [STAFF PHYSICIAN] - 1-2 days Derik Burrows DO [Doctor of Osteopathic Medicine] - 1-2 days Time of Disposition: 19:59
[2018-06-07 19:46] LABS: Appearance,Urine Cloudy (Clear); Bacteria,Urine Rare /hpf; Bilirubin,Urine Negative (Negative); Blood,Urine Small (Negative); Color,Urine Yellow; Glucose,Urine (UA) Negative (Negative); Ketones,Urine Negative (Negative); Leukocyte Esterase,Urine Large (Negative); Mucus,Urine Many /hpf; Nitrite,Urine Negative (Negative); PH, Urine 6.5 (5.0-8.0); Protein,Urine Trace (Negative); RBC,Urine 17 /hpf (0-5); Specific Gravity,Urine 1.023 (1.001-1.035); Squamous Epithelial Cell,Urine 11 /hpf (0-4); Urobilinogen,Urine <2.0 mg/dL (<2.0)
[2018-06-07] MEDS ORDERED: cefTRIAXone 250 MG VIAL IM STA (19:53)
[2018-06-07] MEDS ORDERED: AZITHROMYCIN 500 MG TAB PO STA (19:53)
[2018-06-07] MEDS ORDERED: metroNIDAZOLE 500 MG TAB PO STA (19:53)
[2018-06-07 20:31] VITALS: BP 114/66; PULSE 61; RESP 16; TEMP 98
[2018-06-09 13:13] LABS: C. trachomatis,PCR Negative (Neg,Equiv); Chlamydia trachomatis Source Vagina; N. gonorrhoeae,PCR Negative (Neg,Equiv); Neisseria Source Vagina
== END 2018-06-07 20:29 | disposition home or self-care (01) ==
LOC: EC 18:51
DX: A59.01 Trichomonal vulvovaginitis (principal); F17.200 Nicotine dependence, unspecified, uncomplicated; Z79.899 Other long term (current) drug therapy
CPT/HCPCS: 81001; 81025; 87808; 87491; 87591; 87070; 87086; 87205; 99284; 96372; J0696

== ENCOUNTER 2018-08-08 15:24 | Emergency (ER) | payer OTHER ==
[2018-08-08 15:28] VITALS: BP 104/76; PULSE 88; RESP 18; TEMP 98.6
[2018-08-08 16:11] LABS: Appearance,Urine Clear (Clear); Bilirubin,Urine Negative (Negative); Blood,Urine Negative (Negative); Color,Urine Yellow; Glucose,Urine (UA) Negative (Negative); Ketones,Urine Negative (Negative); Leukocyte Esterase,Urine Negative (Negative); Nitrite,Urine Negative (Negative); Protein,Urine Negative (Negative); Specific Gravity,Urine 1.025 (1.001-1.035); Urobilinogen,Urine <2.0 mg/dL (<2.0)
--- NOTE | 2018-08-08 16:21 | ED ---
General Adult HPI - General Chief complaint: Abdominal Pain Stated complaint: TEST Time Seen by Provider: 08/08/18 15:53 Source: patient, RN notes reviewed Mode of arrival: ambulatory Limitations: no limitations - History of Present Illness Initial comments: 27-year-old female presents emergency Department with chief complaint of possible . Patient states that she is one week late for her menstrual cycle. She did take a test at home which was faintly positive. She has no complaint abdominal pain, vaginal bleeding vaginal discharge. Patient is A0 denies any current dysuria, hematuria. Patient was was one year ago. Patient offers no other complaints this time. - Related Data Home Medications Medication Instructions Recorded Confirmed Ferrous Sulfate [Iron] 325 mg PO BID 04/15/17 07/17/17 Pnv,Calcium 72/Iron/Folic Acid 1 tab PO DAILY 04/15/17 07/17/17 [ Plus Tablet] Sennosides [Senokot] 2 tab PO DAILY 04/15/17 07/17/17 Previous Rx's Medication Instructions Recorded Ibuprofen [Motrin] 600 mg PO Q6HR PRN #30 tab 07/18/17 Allergies Allergy/AdvReac Type Severity Reaction Status Date / Time No Known Allergies Allergy Verified 08/08/18 15:28 Review of Systems ROS Statement: Those systems with pertinent positive or pertinent negative responses have been documented in the HPI. ROS Other: All systems not noted in ROS Statement are negative. Past Medical History Past Medical History: No Reported History History of Any Multi-Drug Resistant Organisms: None Reported Past Surgical History: No Surgical Hx Reported Past Anesthesia/Blood Transfusion Reactions: No Reported Reaction Past Psychological History: No Psychological Hx Reported, Depression Smoking Status: Current every day smoker Past Alcohol Use History: None Reported Past Drug Use History: None Reported - Past Family History Mother Family Medical History: No Reported History General Exam Limitations: no limitations General appearance: alert, in no apparent distress Head exam: Present: atraumatic, normocephalic, normal inspection Neck exam: Present: normal inspection. Absent: tenderness, meningismus, lymphadenopathy Respiratory exam: Present: normal lung sounds bilaterally. Absent: respiratory distress, wheezes, rales, rhonchi, stridor Cardiovascular Exam: Present: regular rate, normal rhythm, normal heart sounds. Absent: systolic murmur, diastolic murmur, rubs, gallop, clicks GI/Abdominal exam: Present: soft, normal bowel sounds. Absent: distended, tenderness, guarding, rebound, rigid Course Vital Signs 08/08/18 15:25 Temperature 98.6 F Pulse Rate 88 Respiratory 18 Rate Blood Pressure 104/76 O2 Sat by Pulse 100 Oximetry Medical Decision Making - Medical Decision Making 27-year-old female presented for . Patient has no abdominal tenderness no vaginal bleeding or vaginal discharge. Patient is complaining . She does not want keep this at this time. Patient we discharged return parameters were discussed. - Lab Data Lab Results 08/08/18 08/08/18 Range/Units 16:00 16:00 Urine Color Yellow Urine Appearance Clear (Clear) Urine pH 6.0 (5.0-8.0) Ur Specific [place] 1.025 (1.001-1.035) Urine Protein Negative (Negative) Urine Glucose (UA) Negative (Negative) Urine Ketones Negative (Negative) Urine Blood Negative (Negative) Urine Nitrite Negative (Negative) Urine Bilirubin Negative (Negative) Urine Urobilinogen <2.0 (<2.0) mg/dL Ur Leukocyte Esterase Negative (Negative) Urine HCG, Qual Detected (Not Detectd) Disposition Clinical Impression: Disposition: HOME SELF-CARE Condition: Stable Instructions (If sedation given, give patient instructions): (ED) Additional Instructions: Please return to the Emergency Department if symptoms worsen or any other concerns. Is patient prescribed a controlled substance at d/c from ED?: No Referrals: None,Stated [Primary Care Provider] - 1-2 days Time of Disposition: 16:21
== END 2018-08-08 16:32 | disposition home or self-care (01) ==
LOC: EC 15:24
DX: Z34.90 Encounter for supervision of normal pregnancy, unspecified, unspecified trimester (principal); F17.200 Nicotine dependence, unspecified, uncomplicated; Z79.899 Other long term (current) drug therapy
CPT/HCPCS: 81003; 81025; 99283

== ENCOUNTER 2018-09-17 16:06 | Emergency (ER) | payer OTHER ==
[2018-09-17 17:47] LABS: Basophils # (A) 0.1 k/uL (0-0.2); Basophils % (A) 1 %; Eosinophils # (A) 0.4 k/uL (0-0.7); Eosinophils % (A) 5 %; HCT 41.9 % (34.0-46.0); HGB 13.8 gm/dL (11.4-16.0); Lymphocytes # (A) 2.6 k/uL (1.0-4.8); Lymphocytes % (A) 30 %; MCHC 32.9 g/dL (31.0-37.0); MCV 88.2 fL (80.0-100.0); Mean Platelet Volume 7.8; Monocytes # (A) 0.2 k/uL (0-1.0); Monocytes % (A) 3 %; Neutrophils # (A) 5.3 k/uL (1.3-7.7); Neutrophils % (A) 61 %; Platelet Count 238 k/uL (150-450); RBC 4.75 m/uL (3.80-5.40); RDW 12.8 % (11.5-15.5); WBC 8.7 k/uL (3.8-10.6)
[2018-09-17 17:51] LABS: Appearance,Urine Cloudy (Clear); Bacteria,Urine Occasional /hpf; Bilirubin,Urine Negative (Negative); Blood,Urine Small (Negative); Color,Urine Yellow; Glucose,Urine (UA) Negative (Negative); Ketones,Urine Negative (Negative); Leukocyte Esterase,Urine Trace (Negative); Mucus,Urine Many /hpf; Nitrite,Urine Negative (Negative); PH, Urine 6.5 (5.0-8.0); Protein,Urine 1+ (Negative); RBC,Urine 3 /hpf (0-5); Specific Gravity,Urine 1.034 (1.001-1.035); Squamous Epithelial Cell,Urine 16 /hpf (0-4); WBC,Urine 4 /hpf (0-5)
[2018-09-17 17:55] LABS: INR 0.9 (<1.2); Partial Thromboplastin Time 24.1 sec (22.0-30.0); Prothrombin Time 9.9 sec (9.0-12.0)
[2018-09-17 17:59] LABS: African American GFR (CKD) >90 (>60 ml/min/1.73 sqM); Anion Gap 9 mmol/L; Blood Urea Nitrogen 10 mg/dL (7-17); Calcium 9.3 mg/dL (8.4-10.2); Carbon Dioxide 23 mmol/L (22-30); Chloride 108 mmol/L (98-107); Glucose 89 mg/dL (74-99); Potassium 4.4 mmol/L (3.5-5.1); Sodium 140 mmol/L (137-145)
--- NOTE | 2018-09-17 18:01 | ED ---
General Adult HPI - General Chief complaint: Recheck/Abnormal Lab/Rx Stated complaint: female issues Time Seen by Provider: 09/17/18 16:38 Source: patient Mode of arrival: ambulatory Limitations: no limitations - History of Present Illness Initial comments: Patient is a 27-year-old, female presenting to emergency department for a positive urine test after after a recent . Patient states that she had a medical approximately one month ago and took a urine test this morning which was positive. Patient continued to emergency department to be evaluated and make sure "everything is out". Patient reports sexual intercourse a few days after the but states that she was a condom. Patient reports the possibility of the condom breaking. Patient denies nausea, vomiting, diarrhea, increased urgency or frequency, dysuria. Patient denies vaginal bleeding, itching or discharge. Patient reports intermittent cramping abdominal pain that does not radiate anywhere. Patient denies taking medications alleviate the pain. Patient denies headaches, shortness of breath, chest pain or palpitations. - Related Data Home Medications Medication Instructions Recorded Confirmed No Known Home Medications 08/08/18 09/17/18 Allergies Allergy/AdvReac Type Severity Reaction Status Date / Time No Known Allergies Allergy Verified 09/17/18 16:33 Review of Systems ROS Statement: Those systems with pertinent positive or pertinent negative responses have been documented in the HPI. ROS Other: All systems not noted in ROS Statement are negative. Past Medical History Past Medical History: No Reported History History of Any Multi-Drug Resistant Organisms: None Reported Past Surgical History: No Surgical Hx Reported Past Anesthesia/Blood Transfusion Reactions: No Reported Reaction Past Psychological History: Depression Smoking Status: Current every day smoker Past Alcohol Use History: None Reported Past Drug Use History: None Reported - Past Family History Mother Family Medical History: No Reported History General Exam Limitations: no limitations General appearance: alert, in no apparent distress Head exam: Present: atraumatic, normocephalic, normal inspection Eye exam: Present: normal appearance, PERRL, EOMI Pupils: Present: normal accommodation ENT exam: Present: normal exam, mucous membranes moist Neck exam: Present: normal inspection, full ROM. Absent: lymphadenopathy Respiratory exam: Present: normal lung sounds bilaterally. Absent: respiratory distress, wheezes, rales Cardiovascular Exam: Present: regular rate, normal rhythm, normal heart sounds GI/Abdominal exam: Present: soft, tenderness (Mild generalized tenderness on palpation.), normal bowel sounds. Absent: distended, guarding, rebound, rigid External exam: Present: normal external exam Speculum exam: Present: normal speculum exam. Absent: cervical discharge, vaginal bleeding, foreign body Extremities exam: Present: normal inspection, full ROM, normal capillary refill Back exam: Present: normal inspection, full ROM. Absent: CVA tenderness (R), CVA tenderness (L) Neurological exam: Present: alert, oriented X3 Psychiatric exam: Present: normal affect, normal mood Skin exam: Present: warm, intact, normal color Course Vital Signs 09/17/18 09/17/18 16:13 18:15 Temperature 98.7 F Pulse Rate 89 78 Respiratory 18 18 Rate Blood Pressure 100/67 121/72 O2 Sat by Pulse 99 100 Oximetry Medical Decision Making - Medical Decision Making Patient is a 27-year-old, female presenting to emergency department for a positive urine test after after a recent . UA was negative for a urinary tract infection. Ultrasound was negative for any using intrauterine . Beta Quant measured approximately 350 which is most likely a residual elevated value that is going to continue to drop as time continues. Pelvic exam was unremarkable for abnormal pathology. Gonorrhea and chlamydia swabs were obtained. Patient advised to abstain from sexual intercourse for at least 2 more weeks. Patient advised to follow-up with [facility]. Patient advised to return to emergency department if symptoms worsen. Case discussed with physician. - Lab Data Result diagrams: 09/17/18 17:31 09/17/18 17:31 Lab Results 09/17/18 09/17/18 09/17/18 Range/Units 17:31 17:31 17:31 WBC 8.7 (3.8-10.6) k/uL RBC 4.75 (3.80-5.40) m/uL Hgb 13.8 (11.4-16.0) gm/dL Hct 41.9 (34.0-46.0) % MCV 88.2 (80.0-100.0) fL MCH 29.0 (25.0-35.0) pg MCHC 32.9 (31.0-37.0) g/dL RDW 12.8 (11.5-15.5) % Plt Count 238 (150-450) k/uL Neutrophils % 61 % Lymphocytes % 30 % Monocytes % 3 % Eosinophils % 5 % Basophils % 1 % Neutrophils # 5.3 (1.3-7.7) k/uL Lymphocytes # 2.6 (1.0-4.8) k/uL Monocytes # 0.2 (0-1.0) k/uL Eosinophils # 0.4 (0-0.7) k/uL Basophils # 0.1 (0-0.2) k/uL PT (9.0-12.0) sec INR (<1.2) APTT (22.0-30.0) sec Sodium 140 (137-145) mmol/L Potassium 4.4 (3.5-5.1) mmol/L Chloride 108 H (98-107) mmol/L Carbon Dioxide 23 (22-30) mmol/L Anion Gap 9 mmol/L BUN 10 (7-17) mg/dL Creatinine 0.63 (0.52-1.04) mg/dL Est GFR (CKD-EPI)AfAm >90 (>60 ml/min/1.73 sqM) Est GFR (CKD-EPI)NonAf >90 (>60 ml/min/1.73 sqM) Glucose 89 (74-99) mg/dL Calcium 9.3 (8.4-10.2) mg/dL HCG, Quant 372.8 mIU/mL Urine Color Urine Appearance (Clear) Urine pH (5.0-8.0) Ur Specific [place] (1.001-1.035) Urine Protein (Negative) Urine Glucose (UA) (Negative) Urine Ketones (Negative) Urine Blood (Negative) Urine Nitrite (Negative) Urine Bilirubin (Negative) Urine Urobilinogen (<2.0) mg/dL Ur Leukocyte Esterase (Negative) Urine RBC (0-5) /hpf Urine WBC (0-5) /hpf Ur Squamous Epith Cells (0-4) /hpf Urine Bacteria (None) /hpf Urine Mucus (None) /hpf Blood Type A Negative Blood Type Recheck No 09/17/18 09/17/18 Range/Units 17:31 17:31 WBC (3.8-10.6) k/uL RBC (3.80-5.40) m/uL Hgb (11.4-16.0) gm/dL Hct (34.0-46.0) % MCV (80.0-100.0) fL MCH (25.0-35.0) pg MCHC (31.0-37.0) g/dL RDW (11.5-15.5) % Plt Count (150-450) k/uL Neutrophils % % Lymphocytes % % Monocytes % % Eosinophils % % Basophils % % Neutrophils # (1.3-7.7) k/uL Lymphocytes # (1.0-4.8) k/uL Monocytes # (0-1.0) k/uL Eosinophils # (0-0.7) k/uL Basophils # (0-0.2) k/uL PT 9.9 (9.0-12.0) sec INR 0.9 (<1.2) APTT 24.1 (22.0-30.0) sec Sodium (137-145) mmol/L Potassium (3.5-5.1) mmol/L Chloride (98-107) mmol/L Carbon Dioxide (22-30) mmol/L Anion Gap mmol/L BUN (7-17) mg/dL Creatinine (0.52-1.04) mg/dL Est GFR (CKD-EPI)AfAm (>60 ml/min/1.73 sqM) Est GFR (CKD-EPI)NonAf (>60 ml/min/1.73 sqM) Glucose (74-99) mg/dL Calcium (8.4-10.2) mg/dL HCG, Quant mIU/mL Urine Color Yellow Urine Appearance Cloudy H (Clear) Urine pH 6.5 (5.0-8.0) Ur Specific [place] 1.034 (1.001-1.035) Urine Protein 1+ H (Negative) Urine Glucose (UA) Negative (Negative) Urine Ketones Negative (Negative) Urine Blood Small H (Negative) Urine Nitrite Negative (Negative) Urine Bilirubin Negative (Negative) Urine Urobilinogen 3.0 (<2.0) mg/dL Ur Leukocyte Esterase Trace H (Negative) Urine RBC 3 (0-5) /hpf Urine WBC 4 (0-5) /hpf Ur Squamous Epith Cells 16 H (0-4) /hpf Urine Bacteria Occasional H (None) /hpf Urine Mucus Many H (None) /hpf Blood Type Blood Type Recheck Disposition Clinical Impression: Positive home test Disposition: HOME SELF-CARE Condition: Stable Instructions (If sedation given, give patient instructions): Dilation and Curettage (DC) Additional Instructions: Please follow-up with an [facility]. Please return to emergency department if symptoms worsen. Please abstain from sexual intercourse for least 2 weeks. Is patient prescribed a controlled substance at d/c from ED?: No Referrals: None,Stated [Primary Care Provider] - 1-2 days Joseph Bernabe MD [STAFF PHYSICIAN] - 1-2 days Time of Disposition: 20:14
[2018-09-17 18:15] LABS: HCG,Quantitative Serum 372.8 mIU/mL
--- NOTE | 2018-09-17 19:56 | US ---
EXAMINATION TYPE: Transvaginal (TV) and Transabdominal (TA) DATE OF EXAM: 09/17/2018 7:03 PM COMPARISON: NONE CLINICAL HISTORY: Pain. Pelvic pain x 2 days. LMP unknown. Pt had 1 month ago. Positive urin e preg today per order. EXAM MEASUREMENTS: GESTATIONAL AGE / DATING Physician Established: Not yet established Dates by LMP: Pt does not know LMP Dates by First Scan: This is first scan, No pole seen Dates by Current Scan for: This is first scan, no pole seen. MATERNAL ANATOMY Uterus: 8.5 x 5.5 x 3.9 CARLENE appears heterogeneous. Prominent peripheral uterine vessels. Endometrium measures 1.2 cm. Right Ovary: 3.7 x 2.3 x 1.8 Left Ovary: 3.1 x 1.7 x 1.5 Post CDS / Adnexa: appears wnl Presence of free fluid: transabdominal view showed possible minimal amount of fluid, not seen transva ginally. Presence of corpus luteal cyst: None seen GESTATION / SURVEY CRL: No pole seen IUP: none seen HC.8 Date of LMP: Unknown IMPRESSION: 1. No visible IUP at this time. 2. No acute process.
[2018-09-17 20:36] VITALS: BP 120/74; PULSE 84; RESP 15; TEMP 98
[2018-09-18 16:08] LABS: C. trachomatis,PCR Negative (Neg,Equiv); Chlamydia trachomatis Source Vagina
[2018-09-18 16:11] LABS: N. gonorrhoeae,PCR Negative (Neg,Equiv); Neisseria Source Vagina
== END 2018-09-17 20:29 | disposition home or self-care (01) ==
LOC: EC 16:06
DX: Z32.01 Encounter for pregnancy test, result positive (principal); O99.330 Smoking (tobacco) complicating pregnancy, unspecified trimester; F17.200 Nicotine dependence, unspecified, uncomplicated
CPT/HCPCS: 36415; 76801; 76817; 80048; 81001; 84702; 85025; 85610; 85730; 86900; 86901; 87086; 87491; 87591; 99283

== ENCOUNTER 2018-10-31 21:09 | Emergency (ER) | payer OTHER ==
[2018-10-31 21:22] VITALS: RESP 18; TEMP 99.2
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
--- NOTE | 2018-10-31 23:50 | XR ---
EXAM: XR Bilateral Hips With Pelvis When Performed, 3 or 4 Views CLINICAL HISTORY: Pain TECHNIQUE: Three or four views of the bilateral hips, with pelvis when performed. COMPARISON: No relevant prior studies available. FINDINGS: Bones/joints: Unremarkable. No acute fracture. No dislocation. Soft tissues: Unremarkable. IMPRESSION: Normal bilateral hip x-rays.
--- NOTE | 2018-10-31 23:51 | XR ---
EXAM: XR Chest, 2 Views CLINICAL HISTORY: Pain TECHNIQUE: Frontal and lateral views of the chest. COMPARISON: Chest x-ray dated 06/12/2015 FINDINGS: Lungs: Unremarkable. No consolidation. Pleural space: Unremarkable. No pneumothorax. Heart: Unremarkable. No cardiomegaly. Mediastinum: Unremarkable. Bones/joints: Unremarkable. IMPRESSION: Normal chest x-rays.
[2018-11-01 00:10] LABS: Appearance,Urine Cloudy (Clear); Bacteria,Urine Rare /hpf; Bilirubin,Urine Negative (Negative); Blood,Urine Moderate (Negative); Color,Urine Yellow; Glucose,Urine (UA) Negative (Negative); Ketones,Urine Negative (Negative); Leukocyte Esterase,Urine Trace (Negative); Mucus,Urine Rare /hpf; Nitrite,Urine Negative (Negative); Protein,Urine Trace (Negative); RBC,Urine 2 /hpf (0-5); Specific Gravity,Urine 1.021 (1.001-1.035); Squamous Epithelial Cell,Urine 16 /hpf (0-4); Urobilinogen,Urine <2.0 mg/dL (<2.0); WBC,Urine 6 /hpf (0-5)
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
[2018-11-01 00:49] VITALS: BP 108/74; PULSE 66
== END 2018-11-01 00:47 | disposition home or self-care (01) ==
LOC: EC 21:09
DX: R51 Headache (principal); R29.898 Other symptoms and signs involving the musculoskeletal system; F17.200 Nicotine dependence, unspecified, uncomplicated; V49.40XA Driver injured in collision with unspecified motor vehicles in traffic accident, initial encounter; Y92.410 Unspecified street and highway as the place of occurrence of the external cause
CPT/HCPCS: 70450; 71046; 72125; 73521; 81001; 99285